=== PATIENT | male | born 1985 | race Caucasian/White ===

== ENCOUNTER 2020-05-13 17:29 | Emergency (ER) | payer OTHER, SELFPAY ==
[~2020-05-13] VITALS: Ht 182.9 cm; Wt 88.5 kg
[2020-05-13 17:32] VITALS: BP_SYST 152
[2020-05-13 19:53] VITALS: BP_SYST 152
== END 2020-05-13 19:53 | disposition home or self-care (01) ==
LOC: SED 17:29
DX: R42 Dizziness and giddiness (principal); R06.02 Shortness of breath; Z20.828 Contact with and (suspected) exposure to other viral communicable diseases
CPT/HCPCS: 36415; 71045; 93005; 99285